=== PATIENT | female | born 1990 | race Caucasian/White ===

== ENCOUNTER 2016-05-08 23:56 | Emergency (ER) | payer OTHER ==
--- NOTE | 2016-05-09 00:17 | EDPHY ---
H & P Source: Patient - Personal History Tetanus Vaccine Date: 2010 HPI/ROS: HPI CHIEF COMPLAINT: Manic HISTORY OF PRESENT ILLNESS: This patient is a 26-year-old female significant past medical history for bipolar disorder, schizophrenia, presents emergency room on M1 hold by police by EMS if they make contact with her and she was screaming making bizarre behavior she appeared manic. She brought to the emergency room. Upon arrival here she is laughing uncontrollably, smiling appears grandiose. She tells me she had anxiety attack. Denies suicidal ideation. patient tells me she takes schizophrenic meds however does not know what they are she thinks she takes Zyprexa. She tells me she is compliant with them. Past Medical History: Bipolar disorder, schizophrenia Past Surgical History: No recent surgical history Social History: Smokes tobacco, denies drugs or alcohol Family History: Noncontributory ROS REVIEW OF SYSTEMS: A comprehensive 10 point review of systems is otherwise negative aside from elements mentioned in the history of present illness. Exam Constitutional manic triage nursing summary reviewed, vital signs reviewed, awake/alert. Eyes normal conjunctivae and sclera, EOMI, PERRLA. HENT normal inspection, atraumatic, moist mucus membranes, no epistaxis, neck supple/ no meningismus, no raccoon eyes. Respiratory clear to auscultation bilaterally, normal breath sounds, no respiratory distress, no wheezing. Cardiovascular rate normal, regular rhythm, no murmur, no edema, distal pulses normal. Gastrointestinal soft, non-tender, no rebound, no guarding, normal bowel sounds, no distension, no pulsatile mass. Genitourinary no CVA tenderness. Musculoskeletal no midline vertebral tenderness, full range of motion, no calf swelling, no tenderness of extremities, no meningismus, good pulses, neurovascularly intact. Skin pink, warm, & dry, no rash, skin atraumatic. Neurologic awake, alert and oriented x 3, AAOx3, moves all 4 extremities equally, motor intact, sensory intact, CN II-XII intact, normal cerebellar, normal vision, normal speech. Psychiatric excessively laughing, grandiose, manic Heme/Lymph/Immune no lymphadenopathy. Differential Diagnosis: includes but is not limited to in a particular order acute dusty, schizophrenia, medication noncompliance, drug intoxication Medical Decision Making: plan for this patient patient have a blood draw for medical clearance should be given Zyprexa 5 mg p. o. to calm her down. And will re-evaluate her. Re-evaluation: 227: patient is medically cleared. Pending mental health evaluation. Patient was given 5 mg Zyprexa p.o. to calm her down. 0507: No acute events overnight patient be signed over to Dr. Blaine Gifford at 7:00 a.m. shift change. Patient is pending mental health evaluation. On m1 hold. (Eric Mejias) Constitutional: Initial Vital Signs Temperature (C) 36.8 C 05/09/16 00:29 Heart Rate 87 05/09/16 00:29 Respiratory Rate 16 05/09/16 00:29 Blood Pressure 128/90 H 05/09/16 00:29 O2 Sat (%) 97 05/09/16 00:29 O2 Delivery Mode Room Air O2 (L/minute) 96 Allergies/Adverse Reactions: lithium [[place]] Allergy (Severe, Verified 10/07/12 19:09) haloperidol [From Haldol] Allergy (Verified 05/09/16 00:33) haloperidol lactate [From Haldol] Allergy (Verified 05/09/16 00:33) risperidone [From Risperdal] Allergy (Verified 05/09/16 00:33) Home Medications: Medication Instructions Recorded Melatonin 5 mg PO HS 05/09/16 Olanzapine [Zyprexa] 10 mg PO 05/09/16 PRILOSEC 05/09/16 Propranolol HCl 20 mg PO 05/09/16 Topiramate [Topamax] 05/09/16 Medical Decision Making ED Course/Re-evaluation: 9:05 a.m. patient has been evaluated and mental health workers are looking for placement At noon patient is somewhat agitated and is given Zyprexa 10 mg orally Care to Dr. Bush at 3:20 p.m. (Blaine Gifford) 1520: Care of this patient was transferred to me by Dr. Blaine Gifford at change of shift. (Oz Bush) 2210 Care assumed by me from Dr Bush pending placement. [address] Moe pending placement. Patient has slept overnight with no issues. (Jae Zee) 7:30 a.m. the patient is sleeping. Her dad is in the room with her. No overnight issues. Vital signs remained stable. Continue to await placement. 11:50 a.m. the patient has been accepted at [facility] by Dr. Silveira. Transfer paperwork completed. (Jagdish Moe) - Data Points Laboratory Results: Laboratory Results 05/09/16 00:36 05/09/16 00:36 Medications Given: Discontinued Medications Clonazepam (Klonopin) 1 mg PO EDNOW ONE Stop: 05/09/16 20:23 Last Admin: 05/09/16 21:20 Dose: 1 mg Lorazepam (Ativan) 2 mg PO EDNOW ONE Stop: 05/09/16 17:57 Last Admin: 05/09/16 18:03 Dose: 2 mg Olanzapine (Olanzapine) 5 mg PO ONCE ONE Stop: 05/09/16 00:30 Last Admin: 05/09/16 00:50 Dose: 5 mg Olanzapine (Olanzapine) 10 mg PO ONCE ONE Stop: 05/09/16 12:00 Last Admin: 05/09/16 12:31 Dose: 10 mg Departure - Departure Clinical Impression: Acute psychosis Condition: Fair Referrals: Patient,NotPresent [Unknown] - As per Instructions
[2016-05-09] MEDS ORDERED: OLANZapine 5 MG TAB PO ONE (00:29)
[2016-05-09] MEDS ORDERED: OLANZapine 2.5 MG TAB ONE (00:47)
[2016-05-09 00:54] LABS: % IMMATURE GRANULYOCYTES 0.3 % (0.0-1.1); ABSOLUTE IMMATURE GRANULOCYTES 0.04 10^3/uL (0.00-0.10); ADD DIFF? NO; ADD MORPH? NO; ADD SCAN? NO; ATYPICAL LYMPHOCYTE FLAG 10 (0-99); FRAGMENT RBC FLAG 0 (0-99); HEMATOCRIT 41.4 % (38.0-47.0); HEMOGLOBIN 13.5 g/dL (12.6-16.3); LEFT SHIFT FLG 0 (0-99); LIPEMIA HEMOLYSIS FLAG 80 (0-99); MEAN CELL HEMOGLOBIN 28.8 pg (27.9-34.1); MEAN CELL HEMOGLOBIN CONCENTR. 32.6 g/dL (32.4-36.7); MEAN CELL VOLUME 88.5 fL (81.5-99.8); MEAN PLATELET VOLUME 10.3 fL (8.7-11.7); PLATELET CLUMPS FLAG 0 (0-99); PLATELET COUNT 338 10^3/uL (150-400); RED BLOOD CELL COUNT 4.68 10^6/uL (4.18-5.33); RED CELL DISTRIBUTION WIDTH 12.8 % (11.5-15.2)
[2016-05-09 00:57] LABS: ANION GAP 13 mEq/L (8-16); CARBON DIOXIDE 23 mEq/l (22-31); CHLORIDE 109 mEq/L (97-110); CREATININE 0.8 mg/dL (0.6-1.0); ETHANOL SERUM < 10 mg/dL (0-10); GLOMERULAR FILTRATION RATE > 60; GLUCOSE 87 mg/dL (70-100); SALICYLATE < 1.0 mg/dL (2.0-20.0); SODIUM 145 mEq/L (134-144)
[2016-05-09] MEDS ORDERED: OLANZapine 10 MG TAB PO ONE (11:59)
[2016-05-09] MEDS ORDERED: LORazepam 1 MG TAB PO ONE (17:56)
[2016-05-09] MEDS: clonazePAM 1 MG TAB PO ONE ×2 (20:25→21:20)
[2016-05-09] MEDS ORDERED: clonazePAM 1 MG TAB ONE (20:51)
[2016-05-10 09:26] VITALS: O2SAT 96
[2016-05-10 12:13] VITALS: BP 135/71; PULSE 55; RESP 14; TEMP 97.7
[2016-05-10] MEDS ORDERED: OLANZapine 5 MG TAB PO ONE (13:37)
[2016-05-10] MEDS ORDERED: OLANZapine DISINTEGR 5 MG TAB ONE (13:38)
== END 2016-05-10 13:51 ==
LOC: EDUNIT#
DX: F23 Brief psychotic disorder (principal); Z87.891 Personal history of nicotine dependence
CPT/HCPCS: 80305; G0480

== ENCOUNTER 2016-11-09 16:57 | Emergency (ER) | payer OTHER, MEDICAID ==
--- NOTE | 2016-11-09 18:15 | EDPHY ---
Mental Health General Narrative: CHIEF COMPLAINT: anxiety attack HISTORY OF PRESENT ILLNESS: 26-year-old female presents to the emergency department by ambulance from the [facility] after having an anxiety attack today. Patient has a history of schizophrenia, bipolar and PTSD. She reports she was having flashbacks. Patient's mother is at the bedside and states she has these episodes every month or 2. The [facility] was concerned she was having a seizure. Patient reports she shakes during these episodes, remembers the entire thing and her mother state the description of this episode was similar to previous episodes. No SI, HI, auditory or visual hallucinations. Pt denies other complaints. REVIEW OF SYSTEMS: A comprehensive 10 point review of systems is otherwise negative aside from elements mentioned in the history of present illness. Physical Exam Gen: Alert and Oriented, NAD HEENT: PERRL, moist mucous membranes NECK: no meningismus CV: regular rate and regular rhythm PULM: CTAB, no wheezes ABDOMEN: soft, non tender to palpation, BS present NEURO: Neurologically grossly intact EXTREMITIES: normal appearing SKIN: no rash or break in skin on exposed skin PSYCH: Flat affect, answers questions appropriately, denies suicidal ideation, homicidal ideation, auditory or visual hallucinations Previous Psychiatric History: schizophrenia, bipolar Smoking Status: Unknown if ever smoked Time Patient Placed on Detainer: 17:10 Medical Decision Making: Patient awake, alert and oriented, calm. Mother is at bedside, patient reports she did not have a seizure, he had a panic attack remembers the entire episode. Patient is acting appropriate, her mother reports she often shakes with her panic attacks. We have spoken with [facility], they will accept her back after being seen at the crisis Center for a psychiatric clearance. The mother feels comfortable driving her to the crisis center for this to take place, then she will take her back to the [facility]. All parties are comfortable with this plan. - Objective Vital Signs: Initial Vital Signs Temperature (C) 37.0 C 11/09/16 17:20 Heart Rate 135 H 11/09/16 17:20 Respiratory Rate 20 11/09/16 17:20 Blood Pressure 123/80 H 11/09/16 17:20 O2 Sat (%) 92 11/09/16 17:20 O2 Delivery Mode Room Air Allergies/Adverse Reactions: lithium [[place]] Allergy (Severe, Verified 10/07/12 19:09) haloperidol [From Haldol] Allergy (Verified 05/09/16 00:33) haloperidol lactate [From Haldol] Allergy (Verified 05/09/16 00:33) risperidone [From Risperdal] Allergy (Verified 05/09/16 00:33) Home Medications: Medication Instructions Recorded Melatonin 5 mg PO HS 05/09/16 Atarax 11/09/16 BENADRYL 11/09/16 Flexeril 11/09/16 Thorazine (*) 11/09/16 metFORMIN SR 11/09/16 traZODone 11/09/16 Departure - Departure Disposition: Home, Routine, Self-Care Clinical Impression: Anxiety attack Condition: Good Instructions: Panic Attack (ED) Additional Instructions: Pt is medically cleared. Go to the crisis center to be cleared prior to going back to [facility]. [facility] does operate a 24/7 psychiatric crisis unit located at [address] [place] [address]. The telephone number for the 24 hour crisis center is . Please return to the ED if you are feeling suicidal, having thoughts of harming yourself/others or should you feel unsafe or have worsening symptoms. Referrals: LESLEY GARCIA [Other] - Follow Up Only If Needed
[2016-11-09 18:29] VITALS: BP 106/86; PULSE 115; RESP 18; TEMP 98.2; O2SAT 95
== END 2016-11-09 18:43 | disposition home or self-care (01) ==
LOC: EDUNIT#
DX: F41.9 Anxiety disorder, unspecified (principal)

== ENCOUNTER 2018-05-11 01:15 | Emergency (ER) | payer MEDICAID, OTHER ==
[2018-05-11] MEDS ORDERED: OLANZapine DISINTEGR 5 MG TAB PO ONE (01:21)
[2018-05-11] MEDS ORDERED: OLANZapine 10 MG/2 ML VIAL IM ONE (01:23)
--- NOTE | 2018-05-11 01:25 | EDPHY ---
H & P Source: Police, RN/MD, EMS Exam Limitations: Clinical condition - Personal History Tetanus Vaccine Date: 2010 - Medical/Surgical History Hx Asthma: No Hx Chronic Respiratory Disease: No Hx Diabetes: No Hx Cardiac Disease: No Hx Renal Disease: No Hx Cirrhosis: No Hx Alcoholism: No Hx HIV/AIDS: No Hx Splenectomy or Spleen Trauma: No Other PMH: schicodiffective disorder, Bipolar, PTSD - Social History Smoking Status: Unknown if ever smoked Time Seen by Provider: 05/11/18 01:22 HPI/ROS: HPI: This is a 28-year-old female who presents with Chief Complaint: Psychosis, M1 hold Location: psych Quality: M1 hold, psychosis Duration: Unknown Signs and Symptoms: + auditory hallucinations, + visual hallucinations, no suicidal ideation with a plan, no homicidal ideation, + paranoia Timing: None known Severity: Severe Context: Patient presents on M1 hold by police as she was found running around in traffic. Patient is delusional, illogical thinking pattern, tangential, paranoid. Patient reports that she has chips in her arm that are controlling her. She will complain of 1 thing and then deny it at the same time. She answers no to all questions. She was recently hospitalized for psychiatric admission and discharged on 05/06/2018. Patient spent approximately 8 months had inpatient psychiatric unit in [place]. Has been to [facility] multiple times. Mother reports that at dinner she started to be very erratically and manic. She took her to [facility] and patient tried to run. Modifying Factors: None Comment: ROS: A comprehensive 10 system review of systems is otherwise negative aside from elements mentioned in the history of present illness. MEDICAL/SURGICAL/SOCIAL HISTORY: Medical history: Schizophrenia, bipolar, posttraumatic stress disorder Surgical history: Denies Social history: Polysubstance abuse. Alcohol use, tobacco use. Family history noncontributory. CONSTITUTIONAL: Uncooperative, staring and moving head back and forth into my eyes, awake and alert, no obvious distress HEENT: Atraumatic and normocephalic, PERRL, EOMI. Nares patent; no rhinorrhea; no nasal mucosal edema. Tympanic membranes clear. Oropharynx clear, no exudate and moist pink mucosa. Airway patent. No lymphadenopathy. No meningismus. Cardiovascular: Normal S1/S2, regular rate, regular rhythm, without murmur rub or gallop. PULMONARY/CHEST: Symmetrical and nontender. Clear to auscultation bilaterally. Good air movement. No accessory muscle usage. ABDOMEN: Soft, nondistended, nontender, no rebound, no guarding, no peritoneal signs, no masses or organomegaly. No CVAT. EXTREMITIES: 2/2 pulses, strength 5/5, no deformities, no clubbing, no cyanosis or edema. NEUROLOGICAL: no focal neuro deficits. GCS 15. SKIN: Warm and dry, no erythema. no rash. Good capillary refill. PSYCH: Good eye contact, + flight of ideas, + tangential disorganized thought process, poor insight and judgment, + auditory hallucinations, + visual hallucinations, no suicidal ideation with a plan, no homicidal ideation, + paranoia (Philly Trammell) Constitutional: Initial Vital Signs Temperature (C) 36.8 C 05/11/18 01:20 Heart Rate 111 H 05/11/18 01:20 Respiratory Rate 20 05/11/18 01:20 Blood Pressure 119/97 H 05/11/18 01:20 O2 Sat (%) 95 05/11/18 01:20 O2 Delivery Mode Room Air Allergies/Adverse Reactions: lithium [[place]] Allergy (Severe, Verified 05/11/18 01:59) haloperidol [From Haldol] Allergy (Verified 05/11/18 01:59) haloperidol lactate [From Haldol] Allergy (Verified 05/11/18 01:59) risperidone [From Risperdal] Allergy (Verified 05/11/18 01:59) Home Medications: Medication Instructions Recorded Melatonin 05/11/18 Seroquel 05/11/18 Vistaril 05/11/18 Medical Decision Making ED Course/Re-evaluation: Agree with M1 hold as patient is exhibiting psychosis likely schizoaffective disorder. Labs and UDS ordered. Given P. O. Zyprexa 10 mg. 0200: Patient will likely be evaluated the morning. Patient needs inpatient psychiatric admission. End of shift. Signed over to Dr. Mejias This patient was seen under the supervision of my secondary supervising physician. I evaluated care for this patient with attending. (Philly Trammell) 0611: No acute events overnight. Patient was given 10 mg p.o. Zyprexa. She has been sleeping. Patient on M1 hold and needs mental health evaluation this morning. She is psychotic. Signed over at 7:[address] Santiago (Eric Mejias) I took over care of this patient at 3:00 p.m.. This patient is on an M1 hold for acute psychosis. He is currently being evaluated by [facility]. Disposition pending. 5:00 p.m., the patient was seen and evaluated by [facility]. The patient will be transferred to [facility] ([place], [place]) under the care of Dr. Otto. The patient's remaining emergency department course under my care has been uneventful. I filled out the appropriate transfer paperwork. The patient was transferred in stable condition. (Kevin Garcias) Differential Diagnosis: Differential diagnosis includes but is not limited to major depression, anxiety disorder, schizophrenia, bipolar disorder, intoxicant use, suicidal ideation, psychosis, dusty. (Philly Trammell) Other Provider: I assumed care of the patient at 0700. The patient has remained stable. Psychiatric evaluation is pending. 1:30 p.m.: The patient is currently receiving her psychiatric evaluation. She continues to be on M1 psychiatric hold. The patient is turned over to Dr. Garcias at 3:00 p.m.. (Lauro Santiago) - Data Points Laboratory Results: Laboratory Results 05/11/18 02:34 05/11/18 02:34 05/11/18 10:54 Urine Opiates Screen NEGATIVE (NEGATIVE) Urine Barbiturates NEGATIVE (NEGATIVE) Ur Phencyclidine Scrn NEGATIVE (NEGATIVE) Ur Amphetamine Screen NEGATIVE (NEGATIVE) U Benzodiazepines Scrn NEGATIVE (NEGATIVE) Urine Cocaine Screen NEGATIVE (NEGATIVE) U Marijuana (THC) Screen NEGATIVE (NEGATIVE) Medications Given: Discontinued Medications Olanzapine (Zyprexa Zydis) 10 mg PO EDNOW ONE Stop: 05/11/18 01:22 Last Admin: 05/11/18 06:18 Dose: Not Given Olanzapine (Zyprexa Injection) 10 mg IM EDNOW ONE Stop: 05/11/18 01:24 Last Admin: 05/11/18 01:30 Dose: 10 mg Olanzapine (Zyprexa Zydis) 10 mg PO EDNOW ONE Stop: 05/11/18 16:33 Last Admin: 05/11/18 16:35 Dose: 10 mg Departure - Departure Disposition: Other Psych, Not [place] Clinical Impression: Bipolar disorder with severe dusty Schizoaffective psychosis Qualifiers: Schizoaffective disorder type: unspecified Qualified Code(s): F25.9 - Schizoaffective disorder, unspecified Condition: Fair
[2018-05-11 03:16] LABS: PLATELET COUNT 271 10^3/uL (150-400)
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
[2018-05-11] MEDS ORDERED: OLANZapine DISINTEGR 10 MG TAB PO ONE (16:32)
--- NOTE | 2018-05-11 16:41 | ASMTTCLDSP ---
TLC Discharge Disposition Disposition: Answers: Transfer Disposition Notes: Notes: In consultation with [facility] ED physician, Ted Santiago MD and on-call psychiatrist, Maxine Larson MD, both concurred that pt appears to meet 27-65 criteria requiring psychiatric hospitalization as pt appears to be gravely disabled due to a mental illness condition Was patient given the Answers: Yes Inpatient Behavioral Health Prohibited Belongings List while in the ED? Type of Hold: Answers: M1/72-hour Hold Hold initiated by: Answers: Police For Transfers, Accepting [facility] Facility: For Transfers, Accepting Thierno Otto MD Psychiatrist: For Transfers, Reason Hx of aggression and may be too acute before move Patient is Being to new facility. Transferred: Date Signed: 05/11/2018 04:40 PM Electronically Signed By:Devonte Nicole
--- NOTE | 2018-05-11 17:53 | ASMTLCPROG ---
Notes Note: Notes: PT rights were read to pt. Pt signed and was given a copy, the signed rights where placed in chart. Pt was accepted to [facility]; Accepting MD : Thierno Otto Date Signed: 05/11/2018 05:52 PM Electronically Signed By:Devonte Nicole
[2018-05-11 19:12] VITALS: BP 100/68
== END 2018-05-11 19:13 ==
DX: F31.9 Bipolar disorder, unspecified (principal); F25.9 Schizoaffective disorder, unspecified
CPT/HCPCS: 80305; G0480